=== PATIENT | female | born 1995 | race Caucasian/White ===

== ENCOUNTER → 2019-10-14 | Outpatient (REF) | payer OTHER ==
[2019-10-14 15:51] LABS: CHLAMYDIA DNA AMPLIFICATION POSITIVE (NEGATIVE)
[2019-10-22 07:40] LABS: GC DNA AMPLIFICATION NEGATIVE (NEGATIVE)
== END ==
LOC: M WUC 13:04
PROVIDERS: ATTEND Physician Assistant
DX: R30.0 Dysuria (principal)